=== PATIENT | male | born 1965 | race Caucasian/White ===

== ENCOUNTER → 2022-07-16 | Outpatient (CLI) | payer OTHER, SELFPAY ==
--- NOTE | 2022-07-16 07:49 | CDU_ITS ---
Reason For Study: DIZZINESS Rt. Velocities/BP Lt. Velocities/BP Prox CCA 91.9/18.2 cm/sec. Prox CCA 87.5/19.5 cm/sec. Mid CCA 87.5/20.4 cm/sec. Mid CCA 119.8/26.7 cm/sec. Dist CCA 83.1/21.5 cm/sec. Dist CCA 60.0/13.8 cm/sec. Prox ICA 43.1/16.8 cm/sec. Prox ICA 57.8/18.2 cm/sec. Mid ICA 75.4/31.4 cm/sec. Mid ICA 75.4/33.6 cm/sec. Dist ICA 63.8/24.5 cm/sec. Dist ICA 67.7/27.6 cm/sec. Rt. ICA/CCA = 0.86. Lt. ICA/CCA = 0.63. Prox ECA 108.9/13.9 cm/sec. Prox ECA 89.7/21.5 cm/sec. Rt. Vert. 43.1/16.1 cm/sec. Lt. Vert. 53.4/16.0 cm/sec. Right Extracranial There is intimal thickening but no significant atherosclerotic plaque noted in the right common carotid artery. There is heterogeneous, irregular atherosclerotic plaque noted in the right internal carotid artery. There is intimal thickening but no significant atherosclerotic plaque noted in the right external carotid artery. Antegrade flow is noted in the right vertebral artery. Left Extracranial There is intimal thickening but no significant atherosclerotic plaque noted in the left common carotid artery. There is heterogeneous, irregular atherosclerotic plaque noted in the left internal carotid artery. There is intimal thickening but no significant atherosclerotic plaque noted in the left external carotid artery. Antegrade flow is noted in the left vertebral artery. Procedure Carotid Duplex [id number]. This is a Carotid Duplex examination using B-mode, color flow and specral Doppler. The exam was diagnostic. VL/Carotid Duplex Ultrasound Interpretation Summary Mild (<50%) stenosis right extracranial internal carotid. Mild (<50%) stenosis left extracranial internal carotid. Flow within the vertebral arteries is antegrade bilaterally. Ordering Physician: Mart Oro Referring Physician: Mart Oro Performed By: Tirso Mcgee RVT
== END | disposition home or self-care (01) ==
LOC: CVS 07:48
PROVIDERS: PCP Family Medicine; Referring Provider Family Medicine; Visit Provider Family Medicine
DX: R42 Dizziness and giddiness (principal)
CPT/HCPCS: 93880